=== PATIENT | female | born 1990 | race Caucasian/White ===

== ENCOUNTER 2017-04-01 22:05 | Emergency (ER) | payer MEDICAID, OTHER ==
[~2017-04-01] VITALS: Ht 167.6 cm; Wt 76.0 kg
[2017-04-01] MEDS ORDERED: ondansetron 4mg rapidly disintigrating tab PO ONE (23:30)
[2017-04-01 23:53] VITALS: BP 116/70
[2017-04-02 00:14] LABS: CLARITY,URINE SLIGHTLY CLOUDY (Clear); COLOR,URINE YELLOW (Yellow); GLUCOSE, URINE NEGATIVE (Neg); KETONES,URINE NEGATIVE (Neg); LEUKOCYTE ESTERASE ,URINE NEGATIVE (Neg); NITRITES, URINE POSITIVE (Neg); OCCULT BLOOD,URINE TRACE-INTACT (Neg); PH,URINE 5.5 (4.8-8.0); PROTEIN,URINE NEGATIVE (Neg); UROBILINOGEN,URINE 0.2 E.U/dL (0.2-1.0)
[2017-04-02 00:15] LABS: UA COLLECTION TYPE CLN CATCH MIDSTREAM
[2017-04-02 00:29] LABS: BACTERIA,URINE 4+ /HPF (Neg); MUCUS STRANDS MANY /LPF (Neg); SQUAMOUS EPITHELIAL CELL,UR MANY /LPF (FEW)
[2017-04-02 00:30] LABS: RBC,URINE 0-2 /HPF (0-2)
== END 2017-04-01 23:45 | disposition home or self-care (01) ==
LOC: EEVIPCON 22:06 → ER 22:06
DX: Z00.00 Encounter for general adult medical examination without abnormal findings (principal); J45.909 Unspecified asthma, uncomplicated
CPT/HCPCS: 81001; 99283

== ENCOUNTER 2017-11-18 02:30 | Emergency (ER) | payer MEDICAID ==
[~2017-11-18] VITALS: Ht 167.6 cm; Wt 67.0 kg
[2017-11-18] MEDS ORDERED: normal saline 1000ML IV soln IVB ONE ×3 (02:50→07:00)
[2017-11-18] MEDS ORDERED: morphine 4 MG/ML inj SYRINge IV PRN (02:50)
[2017-11-18] MEDS ORDERED: ondansetron/PF 4mg/2ml inj IV ONE (02:50)
[2017-11-18 03:09] LABS: BASOPHILS % (AUTO) 0.1 % (0-1); EOSINOPHILS % (AUTO) 0.3 % (0-6); HEMATOCRIT 42.1 % (35.0-45.0); HEMOGLOBIN 14.5 g/dl (12.0-16.0); LYMPHOCYTES # (AUTO) 0.5 X10'3 (1.1-4.8); LYMPHOCYTES % (AUTO) 4.3 % (21-51); MEAN CORPUSCULAR HEMOGLOBIN 31.3 PG (27.0-31.0); MEAN CORPUSCULAR HGB CONC 34.5 % (33.0-36.5); MEAN CORPUSCULAR VOLUME 90.8 FL (78-98); MEAN PLATELET VOLUME 9.1 FL (7.4-10.4); MONOCYTES # (AUTO) 1.2 X10'3 (0-0.9); MONOCYTES % (AUTO) 9.6 % (2-12); NEUTROPHILS # (AUTO) 10.4 X10'3 (1.8-7.7); NEUTROPHILS % (AUTO) 85.7 % (42-75); PLATELET COUNT 212 X10'3 (140-440); RED BLOOD COUNT 4.64 X10'6 (4.20-5.60); RED CELL DISTRIBUTION WIDTH 13.1 % (11.5-14.5); WHITE BLOOD COUNT 12.2 X10'3 (4.5-11.0)
[2017-11-18 03:24] LABS: ALANINE AMINOTRANSFERASE 33 U/L (12-78); ALBUMIN/GLOBULIN RATIO 0.7 (1.1-1.5); ALKALINE PHOSPHATASE 102 IU/L (46-116); ANION GAP 9 (8-16); ASPARTATE AMINO TRANSFERASE 23 U/L (10-37); BILIRUBIN,TOTAL 0.6 MG/DL (0.1-1.0); BLOOD UREA NITROGEN 12 MG/DL (7-18); BUN/CREATININE RATIO 14.3 (6.6-38.0); CALCIUM 8.8 MG/DL (8.5-10.1); CHLORIDE 98 MMOL/L (99-107); CREATININE 0.84 MG/DL (0.40-0.90); GLUCOSE 160 MG/DL (70-104); LIPASE 57 U/L (73-393); POTASSIUM 3.7 MMOL/L (3.5-5.1); SODIUM 134 MMOL/L (135-145); TOTAL CARBON DIOXIDE 27.1 MMOL/L (24-32); TOTAL PROTEIN 7.5 G/DL (6.4-8.2); eGFR 83 ML/MIN
[2017-11-18 03:44] LABS: URINE HCG NEGATIVE (NEG)
[2017-11-18 04:05] LABS: CLARITY,URINE SLIGHTLY CLOUDY (Clear); COLOR,URINE YELLOW (Yellow); GLUCOSE, URINE NEGATIVE (Neg); KETONES,URINE NEGATIVE (Neg); LEUKOCYTE ESTERASE ,URINE TRACE (Neg); NITRITES, URINE POSITIVE (Neg); OCCULT BLOOD,URINE SMALL (Neg); PROTEIN,URINE TRACE mg/dl (Neg); UROBILINOGEN,URINE 0.2 E.U/dL (0.2-1.0)
[2017-11-18 04:16] LABS: UA COLLECTION TYPE VOIDED
[2017-11-18 04:26] LABS: BACTERIA,URINE 3+ /HPF (Neg); RBC,URINE 0-2 /HPF (0-2)
[2017-11-18 04:27] LABS: MUCUS STRANDS MODERATE /LPF (Neg); SQUAMOUS EPITHELIAL CELL,UR MODERATE /LPF (FEW); WBC CLUMPS,URINE MODERATE /HPF (NEGATIVE)
[2017-11-18] MEDS ORDERED: CIPR-230 PO (05:39)
[2017-11-18] MEDS ORDERED: CefTRIAXone 2gm/D5W 50ml 50 ML IV ONE (05:40)
[2017-11-18 06:25] LABS: TOTAL CELLS COUNTED 100
[2017-11-18 06:26] LABS: PLATELET ESTIMATE NORMAL
[2017-11-18] MEDS ORDERED: LORazepam 2 mg/ml vial IV ONE (07:00)
[2017-11-18] MEDS ORDERED: diphenhydrAMINE 50 mg/ml inj IV ONE (07:00)
[2017-11-18] MEDS ORDERED: metoclopramide 5 mg/ml inj IV ONE (07:00)
[2017-11-18] MEDS ORDERED: HYDROmorphone 1 mg/ml syringe IV PRN (07:00)
[2017-11-18] MEDS ORDERED: ketorolac trometh. 30mg/ml inj. IV ONE (07:05)
[2017-11-18 11:38] VITALS: BP 112/43
== END 2017-11-18 12:02 | disposition home or self-care (01) ==
LOC: ER 02:30
DX: N10 Acute pyelonephritis (principal)
CPT/HCPCS: 36415; 74176; 80053; 81001; 81025; 83690; 85025; 87077; 87088; 87186; 96365; 96375; 99285; J0696; J1200; J1885; J2060; J2270; J2405; J2765; J7030

== ENCOUNTER 2017-12-12 20:59 | Emergency (ER) | payer MEDICAID ==
[~2017-12-12] VITALS: Ht 167.6 cm; Wt 72.7 kg
[~2017-12-12 20:59] MED LIST: CIPR-230 PO
[2017-12-12 21:01] VITALS: BP 120/76
[2017-12-12] MEDS ORDERED: PENI250T2 PO (21:56)
[2017-12-12] MEDS ORDERED: HYDR-4353 PO (21:56)
[2017-12-12] MEDS ORDERED: ALBU8.5H8 INH (21:56)
== END 2017-12-12 22:23 | disposition home or self-care (01) ==
LOC: ER 21:00
DX: K04.7 Periapical abscess without sinus (principal); J45.909 Unspecified asthma, uncomplicated; Z79.899 Other long term (current) drug therapy
CPT/HCPCS: 99283

== ENCOUNTER 2018-01-03 21:24 | Emergency (ER) | payer MEDICAID ==
[~2018-01-03] VITALS: Ht 167.6 cm; Wt 76.0 kg
[~2018-01-03 21:24] MED LIST changes: +ALBU8.5H8 INH; -CIPR-230 PO
[2018-01-03 21:25] VITALS: BP 139/76
[2018-01-03] MEDS ORDERED: PERM60CR19 TP (21:31)
== END 2018-01-03 21:41 | disposition home or self-care (01) ==
LOC: ER 21:25
DX: R21 Rash and other nonspecific skin eruption (principal); B86 Scabies; F17.200 Nicotine dependence, unspecified, uncomplicated
CPT/HCPCS: 99283

== ENCOUNTER 2018-01-13 05:22 | Emergency (ER) | payer MEDICAID ==
[~2018-01-13] VITALS: Ht 167.6 cm; Wt 77.8 kg
[~2018-01-13 05:22] MED LIST changes: +PERM60CR19 TP
[2018-01-13 05:26] VITALS: BP 110/71
[2018-01-13] MEDS ORDERED: PERM60CR19 TP (05:41)
[2018-01-13] MEDS ORDERED: SULF1TAB49 PO (05:41)
[2018-01-13] MEDS ORDERED: TETanus/Pertussis (Acell)/Diphther VAC/PF (Tdap-Adult) 0.5ml syringe IM ONE (05:45)
== END 2018-01-13 06:05 | disposition home or self-care (01) ==
LOC: ER 05:23
DX: L03.113 Cellulitis of right upper limb (principal); B86 Scabies
CPT/HCPCS: 90471; 90715; 99283

== ENCOUNTER 2018-02-26 18:46 | Emergency (ER) | payer MEDICAID ==
[~2018-02-26] VITALS: Ht 167.6 cm; Wt 75.0 kg
[~2018-02-26 18:46] MED LIST changes: -PERM60CR19 TP
[2018-02-26 18:54] VITALS: BP 102/71
== END 2018-02-26 20:23 | disposition home or self-care (01) ==
LOC: ER 18:47
DX: J20.9 Acute bronchitis, unspecified (principal); J45.909 Unspecified asthma, uncomplicated; F17.200 Nicotine dependence, unspecified, uncomplicated; Z79.899 Other long term (current) drug therapy
CPT/HCPCS: 71046; 99283

== ENCOUNTER 2018-03-14 13:25 | Emergency (ER) | payer MEDICAID ==
[~2018-03-14] VITALS: Ht 167.6 cm; Wt 68.2 kg
[2018-03-14 13:28] VITALS: BP 115/58
[2018-03-14] MEDS ORDERED: ciprofloxacin 0.3% 2.5ml ophthalmic solution EACHEYE ONE (14:15)
== END 2018-03-14 14:54 | disposition home or self-care (01) ==
LOC: ER 13:26
DX: H10.89 Other conjunctivitis (principal); L53.8 Other specified erythematous conditions; J45.909 Unspecified asthma, uncomplicated
CPT/HCPCS: 99282

== ENCOUNTER 2021-02-03 13:10 | Emergency (ER) | payer MEDICAID ==
[~2021-02-03] VITALS: Ht 167.6 cm; Wt 72.7 kg
[~2021-02-03 13:10] MED LIST changes: +ALBU8.5H17 INH; -ALBU8.5H8 INH
[2021-02-03 14:44] VITALS: BP 122/74
[2021-02-03] MEDS ORDERED: BUPR1FIL3 SL (14:46)
[2021-02-03] MEDS ORDERED: ALBU6.7H9 INH (14:46)
== END 2021-02-03 15:49 | disposition home or self-care (01) ==
LOC: ER 13:10
DX: Z76.0 Encounter for issue of repeat prescription (principal); J45.909 Unspecified asthma, uncomplicated; Z79.899 Other long term (current) drug therapy
CPT/HCPCS: 99283

== ENCOUNTER 2021-05-31 08:40 | Emergency (ER) | payer MEDICAID ==
[~2021-05-31] VITALS: Ht 167.6 cm; Wt 69.5 kg
[~2021-05-31 08:40] MED LIST changes: +ALBU6.7H9 INH
[2021-05-31 08:49] VITALS: BP 103/56
== END 2021-05-31 09:45 | disposition left against medical advice (07) ==
LOC: ER 08:40
DX: K08.89 Other specified disorders of teeth and supporting structures (principal); Z53.21 Procedure and treatment not carried out due to patient leaving prior to being seen by health care provider

== ENCOUNTER 2022-06-29 19:04 | Emergency (ER) | payer MEDICAID ==
[~2022-06-29] VITALS: Ht 167.6 cm; Wt 63.6 kg
[~2022-06-29 19:04] MED LIST changes: +ALBU6.7H14 INH; -ALBU6.7H9 INH
[2022-06-29 19:34] VITALS: BP 119/81
[2022-06-29] MEDS ORDERED: TRIA15CR61 TOP (19:39)
[2022-06-29] MEDS ORDERED: IBUP-1986 PO (19:39)
[2022-06-29] MEDS ORDERED: AMOX-101 PO (19:39)
[2022-06-29] MEDS ORDERED: triamcinolone acetonide 40mg/ml inj IM ONE (19:40)
== END 2022-06-29 20:48 | disposition home or self-care (01) ==
LOC: ER 19:04
DX: L23.7 Allergic contact dermatitis due to plants, except food (principal); K08.89 Other specified disorders of teeth and supporting structures; J45.909 Unspecified asthma, uncomplicated; Z79.899 Other long term (current) drug therapy
CPT/HCPCS: 96372; 99283; J3301

== ENCOUNTER 2023-05-18 11:41 | Emergency (ER) | payer MEDICAID ==
[~2023-05-18] VITALS: Ht 167.6 cm; Wt 135.0 kg
[~2023-05-18 11:41] MED LIST changes: +IBUP-1986 PO
[2023-05-18 11:52] VITALS: TEMP 98
[2023-05-18] MEDS: triamcinolone acetonide 40mg/ml inj IM ONE (12:11)
[2023-05-18] MEDS: diphenhydrAMINE 50 mg/ml inj IV ONE (12:22)
[2023-05-18] MEDS: methylPREDNISolone sod succ 125mg/2ml vial IV ONE (12:22)
[2023-05-18] MEDS: famotidine/PF 10 mg/ml inj IV ONE (12:22)
[2023-05-18] MEDS: albuterol 2.5 MG/3 ML nebule NEB ONE (12:26)
[2023-05-18 12:30] VITALS: PULSE 99; RESP 16; O2SAT 99
[2023-05-18 12:39] VITALS: PULSE 102; RESP 16; O2SAT 100
[2023-05-18] MEDS ORDERED: PRED10TA23 PO (12:56)
[2023-05-18] MEDS ORDERED: DIPH25CA51 PO (12:56)
[2023-05-18 14:31] VITALS: BP 110/74; PULSE 127; RESP 16; O2SAT 96
[2023-05-18] MEDS ORDERED: ibuprofen tablet 400 MG TABLET PO ONE (14:50)
[2023-05-18] MEDS: acetaminophen 325mg tablet PO ONE (14:54)
[2023-05-18] MEDS: ibuprofen 200mg tablet PO ONE (14:54)
[2023-05-18] MEDS ORDERED: mineral oil/pet hy-phy 85gm ointment TP SCH (15:05)
== END 2023-05-18 15:25 | disposition home or self-care (01) ==
LOC: ER 11:41
DX: L23.7 Allergic contact dermatitis due to plants, except food (principal); J45.909 Unspecified asthma, uncomplicated; Z79.899 Other long term (current) drug therapy; Z79.1 Long term (current) use of non-steroidal anti-inflammatories (NSAID)
CPT/HCPCS: 94640; 96372; 96374; 96375; 99284; J1200; J2930; J3301; J3490; 94760